=== PATIENT | female | born 2005 | race African-American/Black ===

== ENCOUNTER 2025-07-16 22:14 | Emergency (ER) | payer MEDICAID ==
[~2025-07-16] VITALS: Ht 154.9 cm; Wt 74.0 kg
[2025-07-16 22:23] VITALS: O2SAT 100
[2025-07-16 22:51] LABS: CLARITY URINE CLEAR (CLEAR); COLOR URINE YELLOW (YELLOW); GLUCOSE URINE NEGATIVE (NEGATIVE); KETONES URINE TRACE (NEGATIVE); LEUKOCYTE ESTERASE URINE NEGATIVE (NEGATIVE); NITRITE URINE NEGATIVE (NEGATIVE); OCCULT BLOOD URINE NEGATIVE (NEGATIVE); PH URINE 6.5 (4.5-8.0); PROTEIN URINE NEGATIVE (NEGATIVE); SPECIFIC GRAVITY URINE 1.022 (1.005-1.030); UROBILINOGEN URINE 0.2 E.U./dL (0.2-1.0)
[2025-07-17] MEDS ORDERED: METR-167 MT (00:34)
[2025-07-17] MEDS ORDERED: FLUCONAZOLE 100MG TABLET PO STA (00:36)
[2025-07-17] MEDS ORDERED: FLUC150T46 MT (00:36)
[2025-07-17] MEDS: ACETAMINOPHEN 325MG TABLET PO ONE (00:59)
[2025-07-17] MEDS: FLUCONAZOLE 150MG TABLET PO NR (01:00)
[2025-07-17] MEDS: IBUPROFEN 400MG TABLET PO ONE (01:00)
[2025-07-17 01:01] VITALS: BP 104/55; PULSE 71; RESP 17; TEMP 36.6; O2SAT 100
== END 2025-07-17 01:03 | disposition home or self-care (01) ==
LOC: ER 22:14
DX: B37.31 Acute candidiasis of vulva and vagina (principal); I10 Essential (primary) hypertension
CPT/HCPCS: 81003; 81025; 87210; 99284